=== PATIENT | female | born 1985 | race Caucasian/White ===

== ENCOUNTER 2022-08-22 03:07 | Emergency (ER) | payer SELFPAY ==
[~2022-08-22] VITALS: Ht 165.1 cm; Wt 63.6 kg
[2022-08-22] MEDS ORDERED: normal saline 1000ML IV soln IVB ONE ×2 (03:30→05:50)
--- NOTE | 2022-08-22 03:32 | NUR ---
POISON CONTROL RECCS: CMP, TYLENOL & ASPIRIN LEVEL, CK LEVEL, EKG, MONITOR. WATCH FOR SEIZURES, DYSRYHMIAS, USE LIBERAL BENZOS, SEDATION NEEDED, FLUIDS NEEDED, WATCH FOR 6 HOURS RE-EVAL
[2022-08-22] MEDS ORDERED: LORazepam 2 mg/ml vial IV ONE ×3 (03:35→05:50)
[2022-08-22 04:00] LABS: BASOPHILS # (AUTO) 0.1 X10'3 (0-0.2); BASOPHILS % (AUTO) 0.5 % (0-1); EOSINOPHILS # (AUTO) 0.1 X10'3 (0-0.9); EOSINOPHILS % (AUTO) 0.8 % (0-6); HEMATOCRIT 43.5 % (35.0-45.0); HEMOGLOBIN 14.4 g/dl (12.0-16.0); LYMPHOCYTES # (AUTO) 2.1 X10'3 (1.1-4.8); LYMPHOCYTES % (AUTO) 14.7 % (21-51); MEAN CORPUSCULAR HEMOGLOBIN 26.8 PG (27.0-31.0); MEAN CORPUSCULAR HGB CONC 33.1 g/dL (33.0-36.5); MEAN CORPUSCULAR VOLUME 81.1 FL (78-98); MEAN PLATELET VOLUME 8.5 FL (7.4-10.4); MONOCYTES # (AUTO) 0.9 X10'3 (0-0.9); MONOCYTES % (AUTO) 5.9 % (2-12); NEUTROPHILS # (AUTO) 11.4 X10'3 (1.8-7.7); NEUTROPHILS % (AUTO) 78.1 % (42-75); PLATELET COUNT 419 X10'3 (140-440); RED BLOOD COUNT 5.37 X10'6 (4.20-5.60); WHITE BLOOD COUNT 14.6 X10'3 (4.5-11.0)
[2022-08-22 04:29] LABS: ALANINE AMINOTRANSFERASE 34 U/L (12-78); ALBUMIN/GLOBULIN RATIO 0.9 (1.1-1.5); ALKALINE PHOSPHATASE 94 IU/L (46-116); ANION GAP 9 (8-16); ASPARTATE AMINO TRANSFERASE 20 U/L (10-37); BILIRUBIN,TOTAL 0.4 MG/DL (0.1-1.0); BLOOD UREA NITROGEN 12 MG/DL (7-18); BUN/CREATININE RATIO 15.6 (6.6-38.0); CALCIUM 9.4 MG/DL (8.5-10.1); CHLORIDE 103 MMOL/L (99-107); CREATINE KINASE 69 U/L (26-192); CREATININE 0.77 MG/DL (0.40-0.90); GLUCOSE 122 MG/DL (70-104); SODIUM 138 MMOL/L (135-145); TOTAL CARBON DIOXIDE 25.6 MMOL/L (24-32); TOTAL PROTEIN 8.4 G/DL (6.4-8.2); eGFR 84 ML/MIN
[2022-08-22 04:30] LABS: ACETAMINOPHEN < 2.0 UG/ML (10-30); ETHANOL < 0.010 GM/DL (0.0-0.010); POTASSIUM 3.6 MMOL/L (3.5-5.1)
[2022-08-22] MEDS ORDERED: NO HOME MEDS (06:44)
--- NOTE | 2022-08-22 06:45 | NUR ---
approx 0637 pt asked if she takes any home medications. pt shakes her head no. pt asked if she has had any suicidal thoughts ot attempts. pt shakes her head no.
[2022-08-22 09:24] LABS: URINE HCG NEGATIVE (NEG)
[2022-08-22 09:33] LABS: CLARITY,URINE SLIGHTLY CLOUDY (Clear); COLOR,URINE YELLOW (Yellow); GLUCOSE, URINE NEGATIVE (Neg); KETONES,URINE TRACE mg/dl (Neg); LEUKOCYTE ESTERASE ,URINE TRACE (Neg); NITRITES, URINE NEGATIVE (Neg); OCCULT BLOOD,URINE LARGE (Neg); PH,URINE 6.5 (4.8-8.0); PROTEIN,URINE 30 mg/dl (Neg); UROBILINOGEN,URINE 0.2 E.U/dL (0.2-1.0)
[2022-08-22 09:37] LABS: URINE AMPHETAMINE SCREEN POSITIVE (Neg); URINE BARBITUATE SCREEN NEGATIVE (Neg); URINE BENZODIAZEPINES SCREEN NEGATIVE (Neg); URINE CANNABINOID SCREEN NEGATIVE (Neg); URINE COCAINE SCREEN NEGATIVE (Neg); URINE METHADONE SCREEN NEGATIVE (Neg); URINE OPIATE SCREEN NEGATIVE (Neg); URINE PHENCYCLIDINE SCREEN NEGATIVE (Neg)
[2022-08-22 09:38] LABS: UA COLLECTION TYPE CLN CATCH MIDSTREAM
[2022-08-22 09:39] LABS: WBC,URINE 30-50 /HPF (0-4)
[2022-08-22 09:40] LABS: BACTERIA,URINE 2+ /HPF (Neg); MUCUS STRANDS FEW /LPF (Neg); SQUAMOUS EPITHELIAL CELL,UR MODERATE /LPF (FEW); WBC CLUMPS,URINE MODERATE /HPF (NEGATIVE)
[2022-08-22] MEDS ORDERED: normal saline 1000ml 1,000 ML IV ONE (10:20)
--- NOTE | 2022-08-22 10:23 | NUR ---
poison control called back. rec: tylenol, aspirin, cardiac monitoring, and supportive care.
--- NOTE | 2022-08-22 11:51 | NUR ---
pt back in [facility] from [facility].
[2022-08-22 13:22] VITALS: BP 120/89
== END 2022-08-22 13:29 ==
LOC: ER 03:09
DX: F15.10 Other stimulant abuse, uncomplicated
CPT/HCPCS: 36415; 71045; 80053; 80305; 80320; 80329; 81001; 81025; 82550; 83880; 84484; 85025; 93005; 96361; 96374; 96376; 99285; J2060; J7030